=== PATIENT | male | born 1965 | race African-American/Black ===

== ENCOUNTER 2018-12-18 18:51 | Emergency (ER) | payer MEDICAID, OTHER ==
[~2018-12-18] VITALS: Ht 180.3 cm; Wt 98.9 kg
[~2018-12-18 18:51] MED LIST: ALBUTEROL SULF8.5 GM INH; AZITHROMYCIN250 MG PO; BACTRIM-DS1 EA ORAL; CIPRO500 MG PO; CYCLOBENZAPRINE10 MG ORAL; IBUPROFEN600 MG ORAL; LOPERAMIDE2 MG PO; NKM; TRAMADOL HCL50 MG ORAL; ZOFRAN4 MG ORAL
[2018-12-18] MEDS ORDERED: UNOBMED (18:59)
--- NOTE | 2018-12-18 19:00 | NUR ---
ED Nurse Note: Pt ambulated to ED from home c/o 12/21 abdominal pain, N/V/D since earlier today. Pt is A&Ox4, VSS
[2018-12-18 19:01] VITALS: BP 128/71
--- NOTE | 2018-12-18 19:28 | Emergency Room Report ---
History of Present Illness General Chief Complaint: Abdominal Pain Source: Patient (Moy Astudillo MD) Present Illness HPI The patient presents for evaluation of abdominal pain and near syncope that occurred early this morning. He was awakened at 9 AM by severe lower abdominal pain that felt like severe cramp. He said it was somewhere between his bellybutton and his pubic bone. He had vomiting and diarrhea. During that time he felt dizzy and nearly passed out on the toilet. He is moved his bowels for 5 times and denies any melena or blood. He denies vomiting any blood or coffee grounds. He had ingested some coffee before. The vomitus was not metallic and taste. The pain was severe at that time and has improved gradually over the course of the day but he still feels it. He rates it as a 5/ 10 at this time suprapubic slightly more on the right-hand side than the left. He denies dysuria. The patient denies any unusual foods or contacts with ill people. He has not had travel. 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 He has not had alcohol for 2 months. He does not smoke cigarettes but smokes THC every night. Patient reports having an irregular heartbeat. (Moy Astudillo MD) Allergies: Coded Allergies: No Known Allergies (Unverified , 08/24/12) Patient History Past Medical History: see triage record Social History: Reports: alcohol use, drug use - THC; Denies: smoking Social History Narrative came on motor scooter Reviewed Nursing Documentation: PMH: Agreed; PSxH: Agreed (Moy Astudillo MD) Nursing Documentation-PM Past Medical History: No History, Except For Hx Cardiac Problems: Yes - AFIB Hx Hypertension: Yes (Moy Astudillo MD) Physical Exam Vital Signs Date Time Temp Pulse Resp B/P (MAP) Pulse Ox O2 Delivery O2 Flow Rate FiO2 12/18/18 18:54 98.1 78 17 128/71 (90) 98 Room Air Sp02 EP Interpretation: reviewed, normal General Appearance: well appearing, no apparent distress, GCS 15 Head: normocephalic Eyes: bilateral eye normal inspection ENT: moist mucus membranes - Missing upper teeth Neck: supple Respiratory: lungs clear, normal breath sounds Cardiovascular #1: regular rate, rhythm Cardiovascular #2: 2+ radial (R) Gastrointestinal: normal inspection, normal bowel sounds, non tender, no mass, non-distended, no rebound, guarding - Minimal, tenderness - Right lower quadrant Genitourinary: no CVA tenderness Musculoskeletal: back normal, gait/station normal, normal range of motion Neurologic: alert, oriented x3, grossly normal Psychiatric: mood/affect normal Skin: no rash (Moy Astudillo MD) Medical Decision Making Diagnostic Impression: Primary Impression: Vasovagal near syncope Additional Impressions: Gastroenteritis Unifocal PVCs ER Course Patient presents with right lower quadrant pain that is persisted most of the day and is improving associated with vomiting and diarrhea and near syncope. Differential includes vasovagal event, embolic event, appendicitis, gastroenteritis, UTI amongst others. The patient will be evaluated with EKG, chest x-ray and CT of the abdomen. We will need to ascertain what medications he is on. The patient will be treated with IV hydration and also Zofran and Toradol. EKG without injury however frequent ectopy peer to be unifocal PVCs. Based on [facility] computer - on metoprolol 25. Pain is improved. Patient tolerating oral intake. Starting Cipro (pen allergic) for possible UTI and possible colitis. Discussed findings with patient. CT pending. Signed out to Dr. Gonzalez. Laboratory Tests Test 12/18/18 19:30 12/18/18 20:20 White Blood Count 8.6 K/UL (4.8-10.8) Red Blood Count 5.09 M/UL (4.70-6.10) Hemoglobin 16.4 G/DL (14.2-18.0) Hematocrit 47.0 % (42.0-52.0) Mean Corpuscular Volume 92 FL (80-99) Mean Corpuscular Hemoglobin 32.3 PG (27.0-31.0) H Mean Corpuscular Hemoglobin Concent 34.9 G/DL (32.0-36.0) Red Cell Distribution Width 10.7 % (11.6-14.8) L Platelet Count 179 K/UL (150-450) Mean Platelet Volume 9.1 FL (6.5-10.1) Neutrophils (%) (Auto) 67.0 % (45.0-75.0) Lymphocytes (%) (Auto) 27.1 % (20.0-45.0) Monocytes (%) (Auto) 3.6 % (1.0-10.0) Eosinophils (%) (Auto) 1.3 % (0.0-3.0) Basophils (%) (Auto) 1.0 % (0.0-2.0) Prothrombin Time 10.4 SEC (9.30-11.50) Prothrombin Time INR 1.0 (0.9-1.1) PTT 27 SEC (23-33) Sodium Level 142 MMOL/L (136-145) Potassium Level 3.4 MMOL/L (3.5-5.1) L Chloride Level 104 MMOL/L (98-107) Carbon Dioxide Level 25 MMOL/L (21-32) Anion Gap 13 mmol/L (5-15) Blood Urea Nitrogen 17 mg/dL (7-18) Creatinine 1.3 MG/DL (0.55-1.30) Estimate Glomerular Filtration Rate > 60 mL/min (>60) Glucose Level 146 MG/DL (74-106) H Calcium Level 9.3 MG/DL (8.5-10.1) Total Bilirubin 0.6 MG/DL (0.2-1.0) Aspartate Amino Transferase (AST) 18 U/L (15-37) Alanine Aminotransferase (ALT) 12 U/L (12-78) Alkaline Phosphatase 61 U/L (46-116) Total Protein 7.6 G/DL (6.4-8.2) Albumin 4.4 G/DL (3.4-5.0) Globulin 3.2 g/dL Albumin/Globulin Ratio 1.4 (1.0-2.7) Lipase 275 U/L (73-393) Urine Color Pale yellow Urine Appearance Slightly cloudy Urine pH 6.5 (4.5-8.0) Urine Specific [place]idan 1.005 (1.005-1.035) Urine Protein Negative (NEGATIVE) Urine Glucose (UA) Negative (NEGATIVE) Urine Ketones Negative (NEGATIVE) Urine Blood Negative (NEGATIVE) Urine Nitrite Negative (NEGATIVE) Urine Bilirubin Negative (NEGATIVE) Urine Urobilinogen Normal MG/DL (0.0-1.0) Urine Leukocyte Esterase 1+ (NEGATIVE) H Urine RBC 0 /HPF (0 - 0) Urine WBC 5-10 /HPF (0 - 0) H Urine Squamous Epithelial Cells Moderate /LPF (NONE/OCC) H Urine Bacteria Few /HPF (NONE) Urine Mucus Moderate /LPF (NONE/OCC) H (Moy Astudillo MD) ER Course Patient signed out to me. He is being discharged for abdominal pain with diarrhea. CT scan was pending. (Vel Gonzalez MD) EKG Diagnostic Results Rate: normal Rhythm: NSR ST Segments: no acute changes (Moy Astudillo MD) Rhythm Strip Diag. Results EP Interpretation: yes Rhythm: NSR, other - Sinus rhythm with ectopy, the EKG is reading it as PACs however I believe these are PVCs (Moy Astudillo MD) CT/MRI/US Diagnostic Results CT/MRI/US Diagnostic Results : Imaging Test Ordered: CT abdomen pelvis Impression By radiologist. Unremarkable. (Vel Gonzalez MD) Last Vital Signs Date Time Temp Pulse Resp B/P (MAP) Pulse Ox O2 Delivery O2 Flow Rate FiO2 12/18/18 23:00 98.1 88 17 132/72 98 Room Air Status: improved (Moy Astudillo MD) Disposition: HOME, SELF-CARE Condition: Improved Scripts Ondansetron Odt* (ZOFRAN ODT*) 4 Mg Tab.rapdis 4 MG BC EVERY 8 HOURS, #6 TAB 0 Refills Prov: Moy Astudillo MD 12/18/18 Ciprofloxacin Hcl* (CIPROFLOXACIN HCL*) 500 Mg Tablet 500 MG ORAL Q12H, #10 TAB 0 Refills Prov: Moy Astudillo MD 12/18/18 Moy Astudillo MD Dec 18, 2018 19:28 Vel Gonzalez MD Dec 18, 2018 22:59
[2018-12-18] MEDS ORDERED: Ketorolac 30mg Inj IV ONE (19:30)
[2018-12-18] MEDS ORDERED: Isovue-300 100ml vial INJ PRN (19:30)
[2018-12-18 19:39] LABS: EOSINOPHILS % (AUTO) 1.3 % (0.0-3.0); HEMOGLOBIN 16.4 G/DL (14.2-18.0); LYMPHOCYTES % (AUTO) 27.1 % (20.0-45.0); MEAN CORPUSCULAR VOLUME 92 FL (80-99); MONOCYTES % (AUTO) 3.6 % (1.0-10.0); PLATELET COUNT 179 K/UL (150-450); RED BLOOD COUNT 5.09 M/UL (4.70-6.10); RED CELL DISTRIBUTION WIDTH 10.7 % (11.6-14.8); WHITE BLOOD COUNT 8.6 K/UL (4.8-10.8)
[2018-12-18 19:58] LABS: ANION GAP 13 mmol/L (5-15); BLOOD UREA NITROGEN 17 mg/dL (7-18); CALCIUM 9.3 MG/DL (8.5-10.1); CARBON DIOXIDE 25 MMOL/L (21-32); CHLORIDE 104 MMOL/L (98-107); CREATININE 1.3 MG/DL (0.55-1.30); POTASSIUM 3.4 MMOL/L (3.5-5.1); SODIUM 142 MMOL/L (136-145)
[2018-12-18 20:02] LABS: ALANINE AMINOTRANSFERASE 12 U/L (12-78); ALBUMIN 4.4 G/DL (3.4-5.0); ALBUMIN/GLOBULIN RATIO 1.4 (1.0-2.7); ALKALINE PHOSPHATASE 61 U/L (46-116); ASPARTATE AMINO TRANSFERASE 18 U/L (15-37); BILIRUBIN,TOTAL 0.6 MG/DL (0.2-1.0)
[2018-12-18 20:43] LABS: APPEARANCE,URINE SLIGHTLY CLOUDY; BILIRUBIN, URINE NEGATIVE (NEGATIVE); COLOR,URINE PALE YELLOW; GLUCOSE, URINE (UA) NEGATIVE (NEGATIVE); KETONES,URINE NEGATIVE (NEGATIVE); LEUKOCYTE ESTERASE ,URINE 1+ (NEGATIVE); NITRITE,URINE NEGATIVE (NEGATIVE); PH,URINE 6.5 (4.5-8.0); PROTEIN,URINE NEGATIVE (NEGATIVE); UROBILINOGEN,URINE NORMAL MG/DL (0.0-1.0)
--- NOTE | 2018-12-18 21:01 | NUR ---
ED Nurse Note: Pt given oral barium contrast, tolerated well. CT expected at 2109
[2018-12-18] MEDS ORDERED: ONDANSETRON ODT4 MG BC (21:11)
[2018-12-18] MEDS ORDERED: CIPROFLOXACIN500 M2 ORAL (21:11)
--- NOTE | 2018-12-18 21:37 | NUR ---
ED Nurse Note: Pt to CT
[2018-12-18 22:19] VITALS: BP 132/72
[2018-12-18 23:00] VITALS: BP 132/72
--- NOTE | 2018-12-18 23:00 | NUR ---
ER DISCHARGE NOTE: Patient is cleared to be discharged per ERMD, pt is aox4, on room air, with stable vital signs. pt was given dc and prescription instructions, pt was able to verbalize understanding, pt id band and iv site removed without complications. pt is able to ambulate with steady gait. pt took all belongings.
--- NOTE | 2018-12-19 09:59 | Diagnostic Imaging Report ---
Clinical Indication: Abdominal pain Technique: No oral contrast utilized, per emergency room physician request IV administration nonionic contrast. Venous phase spiral acquisition obtained through the abdomen and pelvis. Multiplanar reconstructions were generated. Total dose length product 1017.86 mGycm. CTDIvol(s) 17.73 mGy. Dose reduction achieved using automated exposure control Comparison: 04/20/2013 contrast study, 10/06/2014 noncontrast study Findings: The appendix is normal. There is no evidence of diverticulosis or diverticulitis. The distal esophagus, stomach, duodenum are unremarkable. Previously demonstrated bowel distention is no longer evident. Contrast is seen to traverse the entirety of the small bowel. No small bowel wall thickening. No small bowel distention. No free or loculated intraperitoneal gas or fluid. Apparent slight wall thickening in the distal transverse and proximal descending colon is most likely artifact of under distention. Low-attenuation 1.5 cm lesion is seen in the tip of the right hepatic lobe, segment 6. This is also evident previously and on the prior exam it has imaging features suggestive of a benign hemangioma. Subcentimeter low-attenuation lesion is seen anteriorly in segment IVb. The gallbladder, bile ducts are unremarkable. 5 mm low-attenuation lesion is seen at the pancreatic neck (image 34 series 3) only questionably if at all evident previously. The spleen, adrenals, kidneys are all unremarkable. No retroperitoneal or mesenteric mass or adenopathy. No pelvic mass or adenopathy. There is slight increased attenuation of the subcutaneous fat of the left lateral hip region. There are degenerative changes of the lumbosacral junction. The bones are otherwise unremarkable. The included lung bases demonstrate linear atelectasis or scarring bilaterally. Impression: No definite acute process. Apparent mild wall thickening of the distal transverse and proximal descending colon is likely artifact of under distention. Colitis not completely excludable and correlation with clinical findings is recommended Low-attenuation right lobe liver lesion, evident on multiple prior studies dating back to 2010 and most likely a benign hemangioma Nonspecific slightly increased attenuation of the subcutaneous fat of the left lateral buttock region. A reflect edema or recent minor injury Basilar pulmonary atelectatic changes, degenerative spondylosis changes incidentally noted The above findings are in agreement with the [facility] preliminary report 5 mm low-attenuation pancreatic lesion, only equivocally evident previously. Recommend one year follow-up MRI for further evaluation. This finding was not described on the [facility] preliminary report, was phoned to Dr. Sinha at the time of interpretation The CT scanner at [facility] is accredited by the [employer] and the scans are performed using protocols designed to limit radiation exposure to as low as reasonably achievable to attain images of sufficient resolution adequate for diagnostic evaluation.
== END 2018-12-18 23:00 | disposition home or self-care (01) ==
LOC: EMR 19:25
DX: R55 Syncope and collapse (principal); K52.9 Noninfective gastroenteritis and colitis, unspecified; I10 Essential (primary) hypertension; F12.90 Cannabis use, unspecified, uncomplicated
CPT/HCPCS: 36415; 74177; 80053; 81003; 83690; 85025; 85610; 85730; 93005; 96361; 96365; 96366; 96375; 99284; J0744; J1885; J2405; Q9967

== ENCOUNTER 2019-05-08 23:51 | Emergency (ER) | payer OTHER ==
[~2019-05-08] VITALS: Ht 180.3 cm; Wt 88.5 kg
[~2019-05-08 23:51] MED LIST changes: +CIPROFLOXACIN500 M2 ORAL; +ONDANSETRON ODT4 MG BC; +UNOBMED
--- NOTE | 2019-05-09 00:11 | Emergency Room Report ---
History of Present Illness General Chief Complaint: Abdominal Pain Source: Patient, Medical Record Present Illness [facility] Disclaimer: Please note that this report is being documented using [employer] technology. This can lead to erroneous entry secondary to incorrect interpretation by the dictating instrument. HPI: 54-year-old male presents for evaluation of abdominal pain and chest pain. Symptoms present for approximately 2 days. He notes intermittent diarrhea and burning epigastric pain that radiates up into his chest though also complaining of cramping abdominal pain and the rest of the abdomen. Pain is exacerbated by eating though is currently an 8/10. Denies any difficulty breathing. Reports a history of irregular heart rate but does not take any medication for it. Denies any rectal bleeding, hematuria, dysuria. No history of intra-abdominal surgeries. No history of pancreatitis or diverticulitis. States he no longer drinks alcohol and has not had alcohol for the past 5 months. Unsure whether or not he has a history of ulcers. Currently takes no medications. PMH: Reports irregular heart rhythm PSH: Denies Allergies: Denies Social Hx: Former alcohol use Allergies: Coded Allergies: No Known Allergies (Unverified , 08/24/12) Nursing Documentation-PMH Past Medical History: No History, Except For Hx Cardiac Problems: Yes - AFIB Hx Hypertension: Yes Review of Systems All Other Systems: negative except mentioned in HPI Physical Exam Vital Signs Date Time Temp Pulse Resp B/P (MAP) Pulse Ox O2 Delivery O2 Flow Rate FiO2 05/08/19 23:54 98.2 70 18 112/73 (86) 96 Room Air General: Awake and alert, no acute distress HEENT: NC/AT. EOMI. Chest Wall: No tenderness, no deformity Cardiovascular: RRR. S1 and S2 normal. No murmur appreciated Resp: Normal work of breathing. No cough, wheezing or crackles appreciated Abdomen: Abdomen is soft, nondistended. Diffuse tender to palpation. No guarding. No rebound. Negative Mina's. Skin: Intact. No abrasions, laceration or rash over the exposed skin MSK: Normal tone and bulk. Moving all extremities. No obvious deformity. Neuro: Awake and alert. Mentating appropriately. Medical Decision Making Diagnostic Impression: Primary Impression: Abdominal pain ER Course 54-year-old male presents for evaluation of 2 days diarrhea cramping abdominal pain and epigastric burning rating to the chest. Differential includes was not limited to GERD, ulcer, pancreatitis, cholecystitis, ACS, UTI, appendicitis, bowel obstruction, viral syndrome, gastroenteritis. Will obtain EKG, labs including troponin to rule out atypical ACS as well as abdominal labs. He will be treated with Pepcid, GI cocktail and antiemetics. Do not believe he requires emergent imaging of this abdomen at this time. He arrives with stable vital signs and is overall well-appearing. If work-up unremarkable he may follow-up as an outpatient. Laboratory Tests Test 05/09/19 00:05 White Blood Count 6.4 K/UL (4.8-10.8) Red Blood Count 4.93 M/UL (4.70-6.10) Hemoglobin 16.1 G/DL (14.2-18.0) Hematocrit 44.5 % (42.0-52.0) Mean Corpuscular Volume 90 FL (80-99) Mean Corpuscular Hemoglobin 32.6 PG (27.0-31.0) H Mean Corpuscular Hemoglobin Concent 36.1 G/DL (32.0-36.0) H Red Cell Distribution Width 10.4 % (11.6-14.8) L Platelet Count 191 K/UL (150-450) Mean Platelet Volume 8.1 FL (6.5-10.1) Neutrophils (%) (Auto) 58.3 % (45.0-75.0) Lymphocytes (%) (Auto) 28.0 % (20.0-45.0) Monocytes (%) (Auto) 10.3 % (1.0-10.0) H Eosinophils (%) (Auto) 2.5 % (0.0-3.0) Basophils (%) (Auto) 1.0 % (0.0-2.0) Sodium Level 140 MMOL/L (136-145) Potassium Level 3.4 MMOL/L (3.5-5.1) L Chloride Level 105 MMOL/L (98-107) Carbon Dioxide Level 22 MMOL/L (21-32) Anion Gap 13 mmol/L (5-15) Blood Urea Nitrogen 21 mg/dL (7-18) H Creatinine 1.2 MG/DL (0.55-1.30) Estimate Glomerular Filtration Rate > 60 mL/min (>60) Glucose Level 119 MG/DL (74-106) H Calcium Level 8.9 MG/DL (8.5-10.1) Total Bilirubin 0.8 MG/DL (0.2-1.0) Aspartate Amino Transferase (AST) 20 U/L (15-37) Alanine Aminotransferase (ALT) 24 U/L (12-78) Alkaline Phosphatase 56 U/L (46-116) Troponin I 0.004 ng/mL (0.000-0.056) Total Protein 7.6 G/DL (6.4-8.2) Albumin 3.9 G/DL (3.4-5.0) Globulin 3.7 g/dL Albumin/Globulin Ratio 1.1 (1.0-2.7) Lipase 89 U/L (73-393) EKG Diagnostic Results EKG Time: 00:18 Rate: normal Rhythm: NSR ST Segments: no acute changes Other Impression Sinus rhythm, normal axis, normal intervals, no ST segment changes. Occasional PVC. Rhythm Strip Diag. Results Rhythm Strip Time: 00:18 EP Interpretation: yes Rate: 60s Rhythm: NSR, no ectopy, other - Occasional PVC Chest X-Ray Diagnostic Results Chest X-Ray Diagnostic Results : Chest X-Ray Ordered: Yes # of Views/Limited/Complete: 1 View Indication: Chest Pain EP Interpretation: Yes Interpretation: no consolidation, no effusion, no pneumothorax, no acute cardiopulmonary disease, other - No free air under the diaphragm Impression: No acute disease Electronically Signed by: Electronically signed by Dr. Haresh Bellamy Reevaluation Time: 01:12 Last Vital Signs Date Time Temp Pulse Resp B/P (MAP) Pulse Ox O2 Delivery O2 Flow Rate FiO2 05/08/19 23:54 98.2 70 18 112/73 (86) 96 Room Air Reevaluation Impression EKG, chest x-ray and labs have returned within normal limits. Lipase and troponin are negative. Patient symptoms improved after receiving a GI cocktail and Pepcid. This is likely a viral syndrome causing diarrhea as well as dyspepsia and the patient will be started on famotidine and Maalox. He can follow-up as an outpatient. He is well-appearing and stable for outpatient follow-up. Discussed reasons to return to the emergency department. He understands and agrees with this treatment plan. Disposition: HOME, SELF-CARE Condition: Stable Scripts Mag Hydrox/Al Hydrox/Simeth (MAALOX MAXIMUM STRENGTH SUSP) 355 Ml Oral.susp 20 ML PO TID for 5 Days, #355 ML Prov: Haresh Bellamy MD 05/09/19 Famotidine* (Pepcid 20mg tablet*) 20 Mg Tablet 20 MG ORAL DAILY for 30 Days, #30 TAB 0 Refills Prov: Haresh Bellamy MD 05/09/19 Haresh Bellamy MD May 09, 2019 00:11
[2019-05-09] MEDS ORDERED: Mylanta II UD 30ml ORAL ONE (00:15)
[2019-05-09] MEDS ORDERED: Lidocaine 2% Visc 15ml soln ORAL ONE (00:15)
[2019-05-09] MEDS ORDERED: Dicyclomine HCl 10mg/5ml oral soln ORAL ONE (00:15)
[2019-05-09 00:26] LABS: EOSINOPHILS % (AUTO) 2.5 % (0.0-3.0); HEMATOCRIT 44.5 % (42.0-52.0); HEMOGLOBIN 16.1 G/DL (14.2-18.0); MEAN CORPUSCULAR VOLUME 90 FL (80-99); MONOCYTES % (AUTO) 10.3 % (1.0-10.0); NEUTROPHILS % (AUTO) 58.3 % (45.0-75.0); PLATELET COUNT 191 K/UL (150-450); RED BLOOD COUNT 4.93 M/UL (4.70-6.10); RED CELL DISTRIBUTION WIDTH 10.4 % (11.6-14.8); WHITE BLOOD COUNT 6.4 K/UL (4.8-10.8)
[2019-05-09 00:37] LABS: ANION GAP 13 mmol/L (5-15); BLOOD UREA NITROGEN 21 mg/dL (7-18); CALCIUM 8.9 MG/DL (8.5-10.1); CARBON DIOXIDE 22 MMOL/L (21-32); CHLORIDE 105 MMOL/L (98-107); CREATININE 1.2 MG/DL (0.55-1.30); POTASSIUM 3.4 MMOL/L (3.5-5.1); SODIUM 140 MMOL/L (136-145)
[2019-05-09 00:41] LABS: ALANINE AMINOTRANSFERASE 24 U/L (12-78); ALBUMIN 3.9 G/DL (3.4-5.0); ALBUMIN/GLOBULIN RATIO 1.1 (1.0-2.7); ALKALINE PHOSPHATASE 56 U/L (46-116); ASPARTATE AMINO TRANSFERASE 20 U/L (15-37); BILIRUBIN,TOTAL 0.8 MG/DL (0.2-1.0)
[2019-05-09 01:10] VITALS: BP 136/95
[2019-05-09] MEDS ORDERED: FAMOTIDINE20 MG ORAL (01:16)
[2019-05-09] MEDS ORDERED: MAALOX MAXIMUM355 M1 PO (01:16)
[2019-05-09 01:34] VITALS: BP 136/95
--- NOTE | 2019-05-09 10:36 | Diagnostic Imaging Report ---
Indication: Dyspnea Comparison: 10/06/2014 A single view chest radiograph was obtained. Findings: Cardiomediastinal appearance is within normal limits for age. The lungs are clear. Pulmonary vascularity is appropriate. The diaphragmatic contour is smooth and costophrenic angles are sharp. No pleural effusions are identified. The bones are unremarkable. Impression: No acute findings
== END 2019-05-09 01:34 | disposition home or self-care (01) ==
LOC: EMR 23:59
DX: R10.13 Epigastric pain (principal); I48.91 Unspecified atrial fibrillation; I10 Essential (primary) hypertension
CPT/HCPCS: 36415; 71045; 80053; 83690; 84484; 85025; 93005; 96374; J2405; Z7502; 99284

== ENCOUNTER 2020-03-04 18:37 | Emergency (ER) | payer OTHER ==
[~2020-03-04] VITALS: Ht 180.3 cm; Wt 95.3 kg
[~2020-03-04 18:37] MED LIST changes: +FAMOTIDINE20 MG ORAL; +MAALOX MAXIMUM355 M1 PO
--- NOTE | 2020-03-04 18:56 | NUR ---
ED Nurse Note: Pt ambulated to ed c/o mid sternal chest pain with cough and fluklike symptoms since wednesday. pt states chest pain is non radiating and feels like compressions. pt show no acute distress at this time.
[2020-03-04 18:57] VITALS: BP 121/74
--- NOTE | 2020-03-04 19:13 | NUR ---
ED Nurse Note: Pt taken to CT
[2020-03-04 19:31] LABS: BASOPHILS % (AUTO) 1.1 % (0.0-2.0); EOSINOPHILS % (AUTO) 4.6 % (0.0-3.0); HEMATOCRIT 51.7 % (42.0-52.0); HEMOGLOBIN 17.5 G/DL (14.2-18.0); LYMPHOCYTES % (AUTO) 23.6 % (20.0-45.0); MEAN CORPUSCULAR VOLUME 95 FL (80-99); MONOCYTES % (AUTO) 8.1 % (1.0-10.0); NEUTROPHILS % (AUTO) 62.7 % (45.0-75.0); PLATELET COUNT 167 K/UL (150-450); RED BLOOD COUNT 5.46 M/UL (4.70-6.10); RED CELL DISTRIBUTION WIDTH 11.8 % (11.6-14.8)
[2020-03-04 19:43] LABS: ANION GAP 10 mmol/L (5-15); BLOOD UREA NITROGEN 11 mg/dL (7-18); CALCIUM 8.8 MG/DL (8.5-10.1); CARBON DIOXIDE 25 MMOL/L (21-32); CHLORIDE 105 MMOL/L (98-107); CREATININE 1.2 MG/DL (0.55-1.30); SODIUM 140 MMOL/L (136-145)
--- NOTE | 2020-03-04 19:44 | Diagnostic Imaging Report ---
EXAM: CT Head Without Intravenous Contrast CLINICAL HISTORY: DIZZY TECHNIQUE: Axial computed tomography images of the head/brain without intravenous contrast. CTDI is 53.4 mGy and DLP is 1179.1 mGy-cm. One or more of the following dose reduction techniques were used: automated exposure control, adjustment of the mA and/or kV according to patient size, use of iterative reconstruction technique. COMPARISON: 12/24/09. FINDINGS: Brain: No intracranial hemorrhage or mass effect. No clear acute large vessel territory infarct.. Ventricles: Unremarkable. No ventriculomegaly. Bones/joints: Unremarkable. No acute fracture. Soft tissues: Unremarkable. Sinuses: Ethmoidal mucosal thickening. Mastoid air cells: Unremarkable as visualized. No mastoid effusion. IMPRESSION: No acute intracranial process. Ethmoid sinus mucosal thickening.
[2020-03-04 19:57] LABS: ALANINE AMINOTRANSFERASE 18 U/L (12-78); ALBUMIN 3.9 G/DL (3.4-5.0); ALKALINE PHOSPHATASE 60 U/L (46-116); ASPARTATE AMINO TRANSFERASE 15 U/L (15-37); BILIRUBIN,TOTAL 0.6 MG/DL (0.2-1.0); CKMB 1.3 NG/ML (0.0-3.6); CREATINE KINASE 88 U/L (26-308)
--- NOTE | 2020-03-04 20:02 | NUR ---
ED Nurse Note: urine collected and sent to lab
--- NOTE | 2020-03-04 20:08 | NUR ---
Nurse Note: Called [facility], spoke with Charlene and informed about pt condition. Charlene recommends repeat EKG, CMP, Liver enzymes in 4 hrs; and IV fluids. Addendum: 03/04/20 at 2009 by [email or web address] Informed ER PA.
[2020-03-04 20:18] LABS: APPEARANCE,URINE CLEAR; BILIRUBIN, URINE NEGATIVE (NEGATIVE); GLUCOSE, URINE (UA) NEGATIVE (NEGATIVE); KETONES,URINE 1+ (NEGATIVE); LEUKOCYTE ESTERASE ,URINE 2+ (NEGATIVE); NITRITE,URINE NEGATIVE (NEGATIVE); PH,URINE 6 (4.5-8.0); PROTEIN,URINE NEGATIVE (NEGATIVE); UROBILINOGEN,URINE 4 MG/DL (0.0-1.0)
[2020-03-04 20:21] LABS: COLOR,URINE YELLOW
[2020-03-04] MEDS ORDERED: cefTRIAXone 1 GM in NS 55 ML IVPB ONE (22:00)
--- NOTE | 2020-03-04 22:00 | Emergency Room Report ---
History of Present Illness General Chief Complaint: Flu Like Symptoms Source: Patient Present Illness HPI 55-year-old male with history of COPD, heart murmur, and hypertension currently not taking any medication as he decided to stop taking all meds 6 months ago here complaining of 3 days of multiple bouts of nonbloody diarrhea, chest pain or shortness of breath. Denies any congestion however complains of a nonproductive cough. Denies loss of taste smell, sore throat, nausea vomiting. Complains of minor dizziness denies any syncope. Reports that last he came in contact with someone who was coughing and possible COVID exposure. Has not taken medication for symptom relief. Reports that shortness of breath is relieved when laying down on his back. Denies any pleuritic chest pain or calf swelling. Reports that he last smoked 20 years ago. Denies drug use and alcohol intake. Patient also mentions that last night he decided to take a whole bottle of NyQuil in order to help him sleep as well as relief his cold like symptoms. Reports that he was dizzy and having diarrhea even prior to taking Kwadwo. Denies any SI and HI. Poison control was contacted, asked to repeat labs and EKG 4 hours after the first round of work-up. Also IV fluids to be given. 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 COVID-19 Screening: Negative COVID-19 COVID-19 Testing Source: last week Patient History Past Medical History: see triage record Past Surgical History: none Pertinent Family History: none Immunizations: UTD Reviewed Nursing Documentation: PMH: Agreed; PSxH: Agreed Nursing Documentation-PMH Past Medical History: No History, Except For Hx Cardiac Problems: Yes - AFIB Hx Hypertension: Yes Review of Systems All Other Systems: negative except mentioned in HPI Physical Exam Vital Signs Date Time Temp Pulse Resp B/P (MAP) Pulse Ox O2 Delivery O2 Flow Rate FiO2 03/04/20 18:43 96.6 50 20 121/74 (90) 96 Room Air Sp02 EP Interpretation: abnormal - Low heart rate General Appearance: alert, mild distress Head: normocephalic, atraumatic Eyes: bilateral eye normal inspection, bilateral eye PERRL ENT: hearing grossly normal, normal pharynx, no angioedema, normal voice Neck: full range of motion, supple/symm/no masses Respiratory: chest non-tender, lungs clear, normal breath sounds, speaking full sentences Cardiovascular #1: regular rate, rhythm, no edema Gastrointestinal: normal bowel sounds, non tender, soft, non-distended, no guarding, no rebound Rectal: deferred Genitourinary: no CVA tenderness Musculoskeletal: back normal, no calf tenderness Neurologic: alert, motor strength/tone normal, oriented x3, sensory intact, responsive, speech normal Psychiatric: judgement/insight normal, memory normal, mood/affect normal, no suicidal/homicidal ideation Skin: no rash Lymphatic: no adenopathy Medical Decision Making PA Attestation ALL Diagnosis and treatment plan reviewed and discussed with my supervising physician Dr. Santana Diagnostic Impression: Primary Impression: Chest pain Additional Impression: COPD exacerbation ER Course 55-year-old male with history of COPD, heart murmur, and hypertension currently not taking any medication as he decided to stop taking all meds 6 months ago here complaining of 3 days of multiple bouts of nonbloody diarrhea, chest pain or shortness of breath. Denies any congestion however complains of a nonproductive cough. Denies loss of taste smell, sore throat, nausea vomiting. Complains of minor dizziness denies any syncope. Reports that last he came in contact with someone who was coughing and possible COVID exposure. Has not taken medication for symptom relief. Reports that shortness of breath is relieved when laying down on his back. Denies any pleuritic chest pain or calf swelling. Reports that he last smoked 20 years ago. Denies drug use and alco hol intake. Patient also mentions that last night he decided to take a whole bottle of NyQuil in order to help him sleep as well as relief his cold like symptoms. Reports that he was dizzy and having diarrhea even prior to taking Kwadwo. Denies any SI and HI. Poison control was contacted, asked to repeat labs and EKG 4 hours after the first round of work-up. Also IV fluids to be given. Reports that the pain is intermittent and central without any radiation Ddx considered but are not limited to: CA, Angina, COPD, GERD, coronavirus, COPD exacerbation, CHF Vital signs: are WNL, pt. is afebrile H&PE are most consistent with chest pain, UTI, COPD exacerbation ORDERS: ER sepsis order set ED INTERVENTIONS: Ceftriaxone due to incidental finding of UTI, NS bolus Patient to be discharged stable at time of discharge, patient to follow primary care provider, if worsening symptom return to the emergency room. Patient is not tachycardic upon arrival nor is he tachycardic upon discharge and no further evaluation in terms of repeating labs or EKG needed. Upon reevaluation of patient patient mentioned that it was a misunderstanding and he actually took NyQuil throughout the whole day yesterday not all at once. Poison control was contacted and agreed for the patient to be discharged at this time. EKG Diagnostic Results Rate: normal Rhythm: NSR ST Segments: no acute changes Other Impression No acute ST changes Chest X-Ray Diagnostic Results Chest X-Ray Diagnostic Results : Chest X-Ray Ordered: Yes # of Views/Limited/Complete: 1 View Indication: Chest Pain EP Interpretation: Yes PA Xray: Interpretation reviewed, by supervising MD, and agrees with findings. Interpretation: no consolidation, no effusion, no pneumothorax Impression: No acute disease Electronically Signed by: Mago Ramirez PA-C CT/MRI/US Diagnostic Results CT/MRI/US Diagnostic Results : Imaging Test Ordered: Head CT no contrast Impression No intracranial bleed Last Vital Signs Date Time Temp Pulse Resp B/P (MAP) Pulse Ox O2 Delivery O2 Flow Rate FiO2 03/04/20 18:57 96.6 50 20 121/74 96 Room Air Disposition: HOME, SELF-CARE Condition: Stable Scripts Dicyclomine Hcl* (DICYCLOMINE HCL*) 10 Mg Capsule 10 MG ORAL TID, #10 CAP Prov: Mago Espinoza 03/04/20 Albuterol Sulfate (VENTOLIN HFA) 18 Gm Hfa.aer.ad 2 PUFFS INH EVERY 6 HOURS, #18 GM 0 Refills Prov: Mago Espinoza 03/04/20 Prednisone* (PREDNISONE*) 20 Mg Tablet 40 MG ORAL DAILY for 5 Days, #10 TAB Prov: Mago Espinoza 03/04/20 Levofloxacin* (LEVOFLOXACIN*) 750 Mg Tablet 750 MG ORAL DAILY for 7 Days, #7 TAB Prov: Mago Espinoza 03/04/20 Referrals: NON PHYSICIAN (PCP) Patient Instructions: Chronic Obstructive Pulmonary Disease Exacerbation, Nonspecific Chest Pain, Urinary Tract Infection Additional Instructions: Take medication as directed, follow-up with your primary care provider, increase oral hydration, if worsening symptoms return to emergency room Mago Espinoza Mar 04, 2020 22:00
[2020-03-04] MEDS ORDERED: PREDNISONE20 MG ORAL (22:06)
[2020-03-04] MEDS ORDERED: LEVOFLOXACIN750 MG ORAL (22:06)
[2020-03-04] MEDS ORDERED: VENTOLIN HFA18 GM INH (22:06)
[2020-03-04] MEDS ORDERED: DICYCLOMINE HCL10 MG ORAL (22:09)
[2020-03-04 22:25] VITALS: BP 134/78
--- NOTE | 2020-03-04 22:25 | NUR ---
ER DISCHARGE NOTE: Spoke to Don at [facility] [employer] for updates and is aware of discharge on pt. . Patient is cleared to be discharged per ERMD. Per ERMD, pt does not need repeat labs and EKG. Pt is aox4, on room air, with stable vital signs. Pt was given dc and prescription instructions. Pt was able to verbalize understanding; instructed pt to follow up with primary care physician within 2-5 days. Pt id band and iv site removed without complications; iv site clean and bandaged. Pt is able to ambulate with steady gait. Pt took all belongings.
--- NOTE | 2020-03-05 11:15 | Diagnostic Imaging Report ---
Indication: Chest pain Technique: One view of the chest Comparison: 05/09/2019 Findings: Lungs and pleural spaces are clear. Heart size is normal. No significant change Impression: No acute process
--- NOTE | 2020-03-05 17:41 | Cardiology Report ---
APPROVED REPORT EKG Measurement Heart [id number] CT 130P46 [id number] <Conclusion> Sinus rhythm with frequent premature ventricular complexes Otherwise normal ECG
== END 2020-03-04 22:25 | disposition home or self-care (01) ==
LOC: EMR 21:11
DX: R07.9 Chest pain, unspecified (principal); J44.1 Chronic obstructive pulmonary disease with (acute) exacerbation; R19.7 Diarrhea, unspecified; I10 Essential (primary) hypertension; R05 Cough
CPT/HCPCS: 36415; 70450; 71045; 80053; 80307; 81003; 82550; 82553; 83605; 84484; 85025; 85379; 85610; 85730; 87040; 93005; 96361; 96365; G0480; J0696; J7030; U0002; Z7502; 99284

== ENCOUNTER 2020-07-04 20:29 | Inpatient (IN) | payer OTHER ==
[~2020-07-04] VITALS: Ht 180.3 cm; Wt 94.8 kg
[~2020-07-04 20:29] MED LIST changes: +DICYCLOMINE HCL10 MG ORAL; +LEVOFLOXACIN750 MG ORAL; +PREDNISONE20 MG ORAL; +VENTOLIN HFA18 GM INH
[2020-07-04] MEDS ORDERED: Nitroglycerin Subl 0.4mg tab SL PRN (20:45)
[2020-07-04] MEDS ORDERED: Aspirin Baby 81mg ORAL ONE (20:45)
--- NOTE | 2020-07-04 20:54 | Emergency Room Report ---
History of Present Illness General Chief Complaint: CP Source: Patient Present Illness HPI Patient is a 55-year-old male past medical history of hypertension not compliant with medication who presents to the ER complaining of chest pressure. Patient complains of nonproductive cough. He states that he is a former smoker who quit in 1998. He denies fever or chills. Patient complains of shortness of breath. He denies any lower extremity pain or edema. He denies any recent travel. He denies any abdominal pain nausea or vomiting. Patient states that he has not had a recent COVID-19 test. Allergies: Coded Allergies: No Known Allergies (Unverified , 07/04/20) COVID-19 Screening Contact w/high risk pt: No Experienced COVID-19 symptoms?: Yes Patient History Reviewed Nursing Documentation: PMH: Agreed; PSxH: Agreed Nursing Documentation-PMH Hx Cardiac Problems: Yes - AFIB Hx Hypertension: Yes Review of Systems All Other Systems: negative except mentioned in HPI Physical Exam Sp02 EP Interpretation: reviewed, normal General Appearance: no apparent distress, alert, GCS 15, non-toxic Head: normocephalic, atraumatic Eyes: bilateral eye normal inspection, bilateral eye PERRL ENT: hearing grossly normal, normal pharynx, no angioedema, normal voice Neck: full range of motion, supple/symm/no masses Respiratory: chest non-tender, lungs clear, normal breath sounds, speaking full sentences Cardiovascular #1: bradycardia Gastrointestinal: non tender, soft, no guarding, no rebound Rectal: deferred Musculoskeletal: normal range of motion Neurologic: lab aid III-XII nml as tested, oriented x3 Psychiatric: no suicidal/homicidal ideation Skin: no rash Lymphatic: no adenopathy Medical Decision Making Diagnostic Impression: Primary Impression: Chest pain Additional Impression: Hypertension ER Course Patient presents with chest pain. Patient given aspirin and sublingual nitro which helped his pain. Patient's troponin negative x1. EKG demonstrates no ST elevation. Chest x-ray demonstrates no acute cardiopulmonary pathology. Patient will be admitted for further treatment and evaluation. Laboratory Tests Test 07/04/20 20:40 White Blood Count 9.1 K/UL (4.8-10.8) Red Blood Count 5.13 M/UL (4.70-6.10) Hemoglobin 16.0 G/DL (14.2-18.0) Hematocrit 48.3 % (42.0-52.0) Mean Corpuscular Volume 94 FL (80-99) Mean Corpuscular Hemoglobin 31.1 PG (27.0-31.0) H Mean Corpuscular Hemoglobin Concent 33.1 G/DL (32.0-36.0) Red Cell Distribution Width 11.3 % (11.6-14.8) L Platelet Count 165 K/UL (150-450) Mean Platelet Volume 10.7 FL (6.5-10.1) H Neutrophils (%) (Auto) 48.9 % (45.0-75.0) Lymphocytes (%) (Auto) 36.9 % (20.0-45.0) Monocytes (%) (Auto) 7.3 % (1.0-10.0) Eosinophils (%) (Auto) 6.0 % (0.0-3.0) H Basophils (%) (Auto) 1.0 % (0.0-2.0) D-Dimer 0.44 mg/L FEU (0.00-0.49) Sodium Level 141 MMOL/L (136-145) Potassium Level 4.1 MMOL/L (3.5-5.1) Chloride Level 107 MMOL/L (98-107) Carbon Dioxide Level 28 MMOL/L (21-32) Anion Gap 6 mmol/L (5-15) Blood Urea Nitrogen 19 mg/dL (7-18) H Creatinine 1.1 MG/DL (0.55-1.30) Estimated Glomerular Filtration Rate > 60 mL/min (>60) Glucose Level 101 MG/DL (74-106) Calcium Level 9.2 MG/DL (8.5-10.1) Magnesium Level 2.1 MG/DL (1.8-2.4) Total Bilirubin 0.3 MG/DL (0.2-1.0) Aspartate Amino Transferase (AST) 16 U/L (15-37) Alanine Aminotransferase (ALT) 15 U/L (12-78) Alkaline Phosphatase 65 U/L (46-116) Troponin I 0.002 ng/mL (0.000-0.056) Pro-B-Type Natriuretic Peptide 107 pg/mL (0-125) Total Protein 7.3 G/DL (6.4-8.2) Albumin 3.7 G/DL (3.4-5.0) Globulin 3.6 g/dL Albumin/Globulin Ratio 1.0 (1.0-2.7) EKG Diagnostic Results Troponin ordered: Yes When was troponin ordered?: Jul 04, 2020 EKG Time: 20:49 EP Interpretation: Margaret Bal MD Rate: bradycardiac - 52 bpm Rhythm: other - Sinus bradycardia with PVC and left axis deviation ST Segments: no acute changes ASA given to the pt in ED: Yes Rhythm Strip Diag. Results Rhythm Strip Time: 20:56 EP Interpretation: yes - Margaret Bal MD Rate: 54 bpm Rhythm: no ectopy, other - Sinus bradycardia with PVCs Chest X-Ray Diagnostic Results Chest X-Ray Diagnostic Results : Chest X-Ray Ordered: Yes # of Views/Limited/Complete: 1 View Indication: Chest Pain EP Interpretation: Yes Interpretation: no consolidation, no effusion, no pneumothorax, no acute cardiopulmonary disease Impression: No acute disease Electronically Signed by: Margaret Bal MD Disposition: ADMITTED INPATIENT Condition: Critical Physician Consult: Dr. Rajinder MD at 2140 Referrals: Javier KAURREFERRING (PCP) Additional Instructions: The patient was provided with discharge instructions, notified to follow-up with a primary care doctor and or specialist in the next 24-48 hours, and to return to the ED if they have worsening of their symptoms. Please note that this report is being documented using [employer] technology. This can lead to erroneous entry secondary to incorrect interpretation by the dictating instrument. Margaret Bal M.D. Jul 04, 2020 20:54
[2020-07-04 21:04] LABS: HEMATOCRIT 48.3 % (42.0-52.0); LYMPHOCYTES % (AUTO) 36.9 % (20.0-45.0); MEAN CORPUSCULAR VOLUME 94 FL (80-99); MONOCYTES % (AUTO) 7.3 % (1.0-10.0); NEUTROPHILS % (AUTO) 48.9 % (45.0-75.0); PLATELET COUNT 165 K/UL (150-450); RED BLOOD COUNT 5.13 M/UL (4.70-6.10); RED CELL DISTRIBUTION WIDTH 11.3 % (11.6-14.8); WHITE BLOOD COUNT 9.1 K/UL (4.8-10.8)
--- NOTE | 2020-07-04 21:15 | NUR ---
ED Nurse Note: Recieved pt walk in from home with c/o chest pressure for past week with worsening tonight, pt rates pain at 10/10, deneis feverrs, nausea, vomiting and c/o mild cough intermittently, pt gowned and placed on cardiac monitoring, pt appears under the influence, eyes are red and low and speech slurred at times, pt admits to last week cocaine use, pt placed on monitoring, IV line placed and labs done,MD at bedside, will resume care as ordered and continue to closely monitor.
[2020-07-04 21:18] LABS: ANION GAP 6 mmol/L (5-15); BLOOD UREA NITROGEN 19 mg/dL (7-18); CALCIUM 9.2 MG/DL (8.5-10.1); CARBON DIOXIDE 28 MMOL/L (21-32); CHLORIDE 107 MMOL/L (98-107); CREATININE 1.1 MG/DL (0.55-1.30); POTASSIUM 4.1 MMOL/L (3.5-5.1); SODIUM 141 MMOL/L (136-145)
[2020-07-04 21:29] LABS: ALANINE AMINOTRANSFERASE 15 U/L (12-78); ALBUMIN 3.7 G/DL (3.4-5.0); ALKALINE PHOSPHATASE 65 U/L (46-116); ASPARTATE AMINO TRANSFERASE 16 U/L (15-37); BILIRUBIN,TOTAL 0.3 MG/DL (0.2-1.0)
--- NOTE | 2020-07-04 22:51 | History & Physical ---
History and Physical History & Physicial Ochoa Stein MD Jul 04, 2020 22:51
[2020-07-04 23:00] VITALS: BP 144/76
--- NOTE | 2020-07-04 23:15 | NUR ---
ED Nurse Note: Pt continues to rest in bed quietly, awake and alert, pain remains, meds not effective per pt, v/s stable, IV site patent, no sob or labored breathing, pt has room for admission, report called to JIM Arreola on unit, pt has all belongings and list completed, nad noted, pt being taken to floor via gurney with [facility].
[2020-07-05] VITALS: BP 147/91
[2020-07-05] MEDS ORDERED: Nitroglycerin Subl 0.4mg tab SL PRN (00:45)
[2020-07-05] MEDS: D5 1/2NS 1,000 ML IV SCH ×2 (02:19→14:41)
[2020-07-05 04:00] VITALS: BP 138/93
--- NOTE | 2020-07-05 04:26 | NUR ---
Pt received from JIM Pimentel. Pt is resting comfortably in bed and c/o chest pain radiating across bilateral ribs /10. Pt is A/Ox4 and ambulatory with assistance. Pt admitting vital signs T98.6 P56 R20 O2 99% BP 147/91. Pt lung sounds are clear bilaterally and are painful to palpation. Pt has present bowel sounds in all four quadrants and states low appetite at baseline. Pt has PMSCx4 with legs at 3/5 strength. Pt is continent and uses urinal and is encouraged to use bedside commode for toileting. Pt has cardiac monitoring bradycardia with PVCs; aware. Pt is breathing unlabored and sating well on room air. Pt has Rhand 20G patent with dressing dry and intact. Orders received from Dr Stein via telephone order. Bed is locked and in lowest position with call light within reach. Will continue to monitor.
--- NOTE | 2020-07-05 06:52 | NUR ---
NURSE NOTES: Pt C/O right sided chest pain, rib pain, and pain with breathing. Pt is given one dose of nitroglycerin which does not relieve pain. Pt post medication does not have SOB or hypotension. Pt refuses continued doses and requests different medication. Alerted provider of pt request for pain relief medication and awaiting response. Will continue to monitor. Addendum: 07/05/20 at 0721 by Juan Wood RN Alerted Dr Stein to pt statement of concern that they may have a broken rib. Waiting for Chest XRay from ER to result.
[2020-07-05 07:00] VITALS: BP 146/90
--- NOTE | 2020-07-05 07:32 | NUR ---
CASE MANAGEMENT:REVIEW 55 YR OLD MALE WALKED INTO ER CC: CHEST PRESSURE AND TIGHTNESS X3 WEEKS W/MILD INTERMITTENT COUGH SI: CHEST PAIN. HYPERTENSION 98.2 59 16 160/90 100% ON RA TROPONIN(-) URINE(+) THC IS: ASA PO NITRO SL CXR : TO TELEMETRY DCP: FROM HOME PLAN: 2DECHO 07/05/20 SI: CHEST PAIN 98.5 63 20 138/93 96% ON RA IS:IV LEXISCAN X1 HEPARIN SQ Q8HRS NORVASC PO QD ASA PO QD IVF@75/HR : TELEMETRY STATUS DCP: FROM HOME PLAN: STRESS TEST FOR TODAY
--- NOTE | 2020-07-05 07:32 | NUR ---
NURSE HAND-OFF REPORT: Important Events on Shift:Pt admitted to tele. C/O right side. Patient Status: Stable Diet: NPO Pending Orders: Stress Test, 2Decho Pending Results/Labs:AM Labs Pending notification: Latest Vital Signs: Temperature 98.5 , Pulse 63 , B/P 143 /91 , Respiratory Rate 20 , O2 SAT 96 , Room Air, O2 Flow Rate . Vital Sign Comment: VSS EKG Rhythm: Sinus Bradycardia Rhythm change?: Von CHANDLER Notified?: Von Stein MD Response: Latest [place] Fall Score: 30 Fall Risk: Medium Risk Safety Measures: Call light Within Reach, Bed Alarm Zone 1, Side Rails Side Rails x2, Bed position Low and Locked. Fall Precautions: Yellow Socks Yellow Gown Patient Fall Education Report given to JIM Wheeler.
--- NOTE | 2020-07-05 07:34 | NUR ---
NURSE NOTES: Received report from JIM Martinez. Patient observed to be asleep with HOB slightly elevated. Currently on room air, no signs or symptoms of sob/distress, no c/o any pain or discomfort. Patient with IV access on currently running D51/2NS @ 75 line patent, intact and dressing dry. Patient scheduled for stress test after x@ (-) troponin lvls. 2DE to be done today. Bed placed on lowest and locked,call light placed within reach and will contionu Addendum: 07/05/20 at 0738 by Summer Aguilar RN Received report from JIM Martinez. Patient observed to be asleep with HOB slightly elevated. Currently on room air, no signs or symptoms of sob/distress, no c/o any pain or discomfort. Patient with IV access on currently running D51/2NS @ 75 line patent, intact and dressing dry. Patient scheduled for stress test after x@ (-) troponin lvls. 2DE to be done today. Bed placed on lowest and locked,call light placed within reach and will continue to monitor for any changes in patient's condition.
[2020-07-05] MEDS ORDERED: Aspirin Baby 81mg ORAL SCH (09:00)
[2020-07-05] MEDS ORDERED: Lexiscan 0.4mg/5ml syringe IV ONE (10:00)
--- NOTE | 2020-07-05 11:24 | NUR ---
NURSE NOTES: Vineet from Nuclear Medicine took down patient for pt 1 of stress test. Patient brought down via wheelchair in stable condition.
--- NOTE | 2020-07-05 11:52 | NUR ---
P.T Note: P.T evaluation completed and tx initiated. Please refer to P.T evaluation for current functional status.
[2020-07-05 12:00] VITALS: BP 144/58
[2020-07-05] MEDS ORDERED: Lexiscan 0.4mg/5ml syringe IV PRN (12:42)
[2020-07-05] MEDS ORDERED: Heparin 5000 units/ml inj SUBQ SCH (14:00)
--- NOTE | 2020-07-05 14:27 | Diagnostic Imaging Report ---
Indication: Chest pain Technique: XRAY Chest 1v Comparison: 03/04/2020 Findings: Heart size and mediastinal contours are within normal limits for AP technique. There is no focal airspace consolidation, pneumothorax or pleural effusion. Degenerative changes noted in the spine. Osseous structures demonstrate no acute abnormality. Impression: No radiographic evidence of acute cardiopulmonary disease.
[2020-07-05 16:00] VITALS: BP 135/90
--- NOTE | 2020-07-05 16:13 | Diagnostic Imaging Report ---
INDICATION: Chest pain. Comparison: None available. TECHNIQUE: Using a one day protocol, the patient was injected IV with 10.1 mCi of Tc Myoview. Thirty minutes later, resting gated SPECT images were acquired. Through a previously established IV site, using a bolus injection chemical stress infusion protocol, the patient was given 0.4 mg of Lexiscan followed by a bolus injection of 28.3 mCi of Tc Myoview. The patient was monitored until vital signs returned acceptable levels. Gated stress SPECT supine images were acquired at 30 minutes post Tc Cardiolite injection. The images were processed and displayed in the short axis, vertical and horizontal long axis, and compared with resting images. The gated stress supine images were additionally processed and evaluated for myocardial wall motion and global left ventricular ejection fraction. FINDINGS: There is a photopenic area noted at the cardiac apex seen on both the resting and stress images. This may be a small old infarct versus an area of physiologic apical thinning. Some generalized diminished uptake also noted along the inferior wall on both resting and stress images. There is no reversible ischemia demonstrated. The left ventricular ejection fraction is 45 %, which is diminished. End-diastolic and end-systolic volumes of 121 mL and 67 mL respectively were noted. There appears to be mild global hypokinesis. IMPRESSION: Photopenic area at the cardiac apex on both resting and stress images. Small old infarct versus area physiologic apical thinning. Also generalized diminished uptake in the inferior wall on both resting and stress images. Question old infarct. Please note that this study is performed without the benefit of attenuation correction. Diaphragmatic creep attenuation artifacts can mimic an inferior wall abnormality. EJECTION FRACTION IS 45%.
[2020-07-05] MEDS ORDERED: NORVASC5 MG ORAL (17:21)
[2020-07-05] MEDS ORDERED: ASPIRIN81 MG ORAL (17:21)
--- NOTE | 2020-07-05 17:22 | Discharge Summary ---
Discharge Summary Hospital Course Date of Admission Jul 04, 2020 at 21:35 Date of Discharge Admitting Diagnosis chest pain HPI Boni Alberto is a 55 year old male who was admitted on Jul 04, 2020 at 21:35 for Chest Pain Hospital Course Discharge Discharge Vital Signs Last Vital Signs Date Time Temp Pulse Resp B/P (MAP) Pulse Ox O2 Delivery O2 Flow Rate FiO2 07/05/20 16:00 68 07/05/20 12:00 99.1 19 144/58 (86) 98 07/05/20 09:00 Room Air Discharge Disposition Patient was discharged to Ochoa Stein MD Jul 05, 2020 17:22
--- NOTE | 2020-07-05 18:49 | NUR ---
NURSE NOTES: Received orders from Dr. Stein to discharge patient. Patient observed to be awake, alert and oriented x4. Seen lying in bed, no s/sx of SOB/Distress no c/o any pain or discomfort. Discharge paperworks prepared all documentations signed by patient. Provided patient with discharge teachings verbalized understanding. IV site and ID band removed. Patient belongings all accounted for. Patient discharged off unit in stable condition.
--- NOTE | 2020-07-05 20:29 | History and Physical Report ---
DATE OF ADMISSION: 07/04/2020 CHIEF COMPLAINT: Chest pain. HISTORY OF PRESENT ILLNESS: This is a 55-year-old gentleman with past medical history significant for hypertension, noncompliance with medication, who presented to the emergency department complaining about chest pain. The patient also complained of a nonproductive cough. He is a former smoker, quit in 1998. He denies any fever, chills, nausea, vomiting, or diarrhea. He stated that he has a history of cardiac murmur and was getting EKGs by his primary care doctor. He denies any loss of consciousness, denies any fall or head trauma. He denies any recent COVID exposure or COVID test done. Shortly after initial evaluation in the emergency department, the patient was admitted to the hospital for chest pain, possible acute coronary syndrome. PAST MEDICAL HISTORY AND PAST SURGICAL HISTORY: Significant for hypertension, chronic atrial fibrillation. MEDICATIONS: At home, none. ALLERGIES: No known drug allergies. SOCIAL HISTORY: The patient smokes marijuana. Denies any alcohol or substance abuse. He is a former cigarette smoker, quit in 1998. FAMILY HISTORY: Noncontributory. REVIEW OF SYSTEMS: Denies any dysuria, frequency, hematuria. Denies any hemoptysis or hematochezia. Denies any bright red blood per rectum. PHYSICAL EXAMINATION: VITAL SIGNS: On admission significant for temperature 98.2, pulse of 59, respirations 16, and blood pressure 160/90. GENERAL: The patient is awake and responsive, in no acute distress. HEAD AND NECK: Pupils are equal and reactive to light. Extraocular movements intact. Neck was supple. No JVD. LUNGS: Good air entry. No wheezing or rales. HEART: S1, S2. Regular rhythm. Distant heart sounds. ABDOMEN: Soft, nondistended, nontender. No rebound tenderness. No fluid shift. Mildly obese. EXTREMITIES: No cyanosis, clubbing, or edema. NEUROLOGIC: Cranial nerves II through XII are grossly intact. Motor is 5/5 in all extremities. Gait is intact. RECTAL: Refused and deferred. : Refused and deferred. PSYCHIATRIC: Mood and affect is intact. LABORATORY AND DIAGNOSTIC DATA: Laboratory on admission from the emergency department, WBC of 9.1, hemoglobin 16, hematocrit 48, platelets 165. Sodium 141, potassium 4.1, chloride 107, bicarb 28, BUN 19, creatinine 1.1. First troponin 0.02. D-dimer is 0.44. Urine drug screen positive for marijuana. Chest x-ray, no radiographic evidence of acute cardiopulmonary disease. EKG, sinus bradycardia, ventricular rate of 52 with occasional PVCs. ASSESSMENT: 1. Chest pain, possible acute coronary syndrome. 2. Hypertension. 3. Ex-smoker. PLAN: Admit the patient to a monitored unit. We will follow up with serial cardiac enzymes. Code Status is Full Code. DVT prophylaxis, heparin subcutaneously. We will consider a stress test in the morning. If the stress tests is negative, we will discharge home. Ochoa Stein M.D. DR: MONY JOB#: [id number] CC:
--- NOTE | 2020-07-05 22:14 | Discharge Summary ---
DATE OF ADMISSION: 07/04/2020 DATE OF DISCHARGE: 07/05/2020 HOSPITAL COURSE: This is a 55-year-old gentleman with past medical history significant for hypertension, cardiac murmur, noncompliance with medication, who presented to the hospital complaining of chest pain. Shortly after initial evaluation, patient had a series of cardiac enzymes, which were essentially unremarkable. Patient underwent a stress test, which was nonischemic. Patient subsequently status improved and discharged home today to be followed up as outpatient with [facility]. FINAL DIAGNOSES: 1. Atypical chest pain. 2. Hypertension. 3. Noncompliance with medication. 4. Ex-smoker. MEDICATIONS AT DISCHARGE: Continue discharge medication list. ACTIVITY: As tolerated. DIET: Cardiac diet. Patient was advised to follow up with [facility] within 1 week. Ochoa Stein M.D. DR: CATHERINE JOB#: [id number] CC:
== END 2020-07-05 18:45 | disposition home or self-care (01) | DRG 203 ==
LOC: EMR 20:50 → 2E 21:35 → EDBEDREQ 22:30
DX: R07.89 Other chest pain (principal); I10 Essential (primary) hypertension; Z87.891 Personal history of nicotine dependence; Z91.14 Patient's other noncompliance with medication regimen
CPT/HCPCS: 36415; 71045; 78452; 80053; 80307; 83735; 83880; 84484; 85025; 85379; 93005; 93017; 93306; 99285; J2785; U0002